=== PATIENT | male | born 1965 | race American Indian/Alaskan Native ===

== ENCOUNTER 2022-10-16 12:09 | Inpatient (IN) | payer MEDICAID ==
[~2022-10-16] VITALS: Ht 167.6 cm; Wt 53.5 kg
[2022-10-16 12:12] VITALS: BP 135/75
--- NOTE | 2022-10-16 12:14 | NUR ---
BIBA to bed 07
--- NOTE | 2022-10-16 12:40 | NUR ---
57 y/o M BIBA from home c/o left-sided chest pain, generalized body pain, dizziness, blurry vision, SOB, nausea, vomiting, abd pain x 3 days. Patient A&Ox4, ambulatory, reports with multiple medical complaints. Pt states left-sided chest pain 8/10, pressure/intermittent, radiating down left shoulder and left hip. Patient also reports pain across low abd; 7/10, cramping/constant, radiating to left rib cage and left shoulder. Patient with associated nausea and vomiting x 2 episodes today. Pt with constipation last BM: 5 days ago with bloody stools; reports new onset hemorrhoids with dark red blood. +Hematuria +Decreased appetite x 3 days; +urinary hesitancy x 1 month. Denies dysuria, fever, chills, headache, trauma, injuries, falls. Patient denies any sick household members. bus driver/monitor in place. SpO2 97% on room air tachypneic @ 25. Bed locked in lowest position, side rails x 1. PMH: HTN, DM, HLD Meds: lipitor, metformin, carvedilol Allergies: insulin
--- NOTE | 2022-10-16 12:45 | NUR ---
ALENA Garcia, blood work walked to lab and handed to CPT Roxana.
[2022-10-16 13:19] LABS: ALBUMIN 2.4 g/dL (3.4-5.0); ANION GAP 13.3 (8-16); CARBON DIOXIDE 28.2 mmol/L (21-32); CREATININE 1.2 mg/dL (0.6-1.3); POTASSIUM 4.5 mmol/L (3.5-5.1); TOTAL BILIRUBIN 1.3 mg/dL (0.0-1.0)
[2022-10-16 13:20] LABS: HEMATOCRIT 38.1 % (36-52); HEMOGLOBIN 12.9 g/dL (12.0-18.0); MEAN CORPUSCULAR HEMOGLOBIN 29 pg (27-31); MEAN CORPUSCULAR HGB CONC 34 g/dL (33-37); MEAN CORPUSCULAR VOLUME 85.2 fL (80-94); PLATELET COUNT (AUTO) 183 K/uL (140-450); RED BLOOD CELL COUNT(AUTO) 4.47 MIL/uL (4.20-6.10); RED CELL DISTRIBUTION WIDTH 13.5 % (11.6-13.7); WHITE BLOOD COUNT (AUTO) 18.2 K/uL (4.8-10.8)
--- NOTE | 2022-10-16 13:22 | NUR ---
Dr. Gonzalez evaluating patient at bedside
[2022-10-16] MEDS ORDERED: ONDANSETRON 4 MG/2 ML VIAL IVP ONE (13:30)
[2022-10-16] MEDS ORDERED: ASPIRIN 81 MG TAB.CHEW PO ONE (13:30)
[2022-10-16] MEDS ORDERED: NACL 0.9% 1,000 ML IV ONE ×2 (13:30→15:35)
[2022-10-16] MEDS ORDERED: KETOROLAC 15 MG/ML VIAL IVP ONE (13:30)
[2022-10-16 13:43] LABS: PROTHROMBIN TIME 10.4 secs (10.8-13.4)
--- NOTE | 2022-10-16 14:05 | NUR ---
Patient resting with both eyes closed in semi-fowlers position with assorter in place. Bed locked in lowest position, side rails x 1.
--- NOTE | 2022-10-16 14:11 | NUR ---
Patient reports + relief to pain; 7/10 at this time. Denies nausea. All pt needs met. monitoring tech in place.
[2022-10-16 14:41] LABS: LYMPHOCYTES % (MANUAL) 11 % (20-46)
[2022-10-16 14:42] LABS: MONOCYTES % (MANUAL) 8 % (5-12); PROMYELOCYTES % 1 % (0-0)
[2022-10-16 15:28] LABS: APPEARANCE,URINE CLEAR (CLEAR); BILIRUBIN,URINE NEGATIVE (NEGATIVE); BLOOD, URINE 2+ (NEGATIVE); COLOR,URINE YELLOW (YELLOW); LEUKOCYTE ESTERASE ,URINE NEGATIVE (NEGATIVE); NITRITE, URINE POSITIVE (NEGATIVE); UGLUCOSE 3+ (NEGATIVE)
[2022-10-16 15:39] LABS: RBC,URINE 11-20 (MOD) /HPF (0-5)
[2022-10-16] MEDS ORDERED: cefTRIAXone 1,000 MG VIAL ONE (16:08)
--- NOTE | 2022-10-16 16:08 | NUR ---
Pt to CT via facundo
--- NOTE | 2022-10-16 16:25 | NUR ---
Patient returned from CT and placed onto site monitor. IVF continued and IVPB initiated.
--- NOTE | 2022-10-16 17:43 | NUR ---
Patient states pain 7/10 at this time, requesting pain meds. Dr. Erickson made aware.
[2022-10-16] MEDS ORDERED: ONDANSETRON 4 MG/2 ML VIAL IVP PRN (17:45)
[2022-10-16] MEDS ORDERED: POTASSIUM CHLORIDE 10 MEQ TABER PO PRN (17:45)
[2022-10-16] MEDS ORDERED: MAGNESIUM OXIDE 400 MG TAB PO PRN (17:45)
--- NOTE | 2022-10-16 17:45 | NUR ---
Sister at bedside requesting to speak with . Dr. Erickson notified.
[2022-10-16] MEDS ORDERED: ATOR20TA PO (18:25)
[2022-10-16] MEDS ORDERED: METF-346 PO (18:25)
[2022-10-16] MEDS ORDERED: AMOX500C25 PO (18:25)
[2022-10-16] MEDS ORDERED: GLIM2TAB PO (18:25)
[2022-10-16] MEDS ORDERED: DEC4 PO (18:25)
[2022-10-16] MEDS ORDERED: PANT40EC PO (18:25)
[2022-10-16] MEDS ORDERED: DOCU-299 PO (18:25)
[2022-10-16] MEDS ORDERED: LISI5TAB18 PO (18:25)
[2022-10-16] MEDS: NACL 0.9% 1,000 ML IV SCH (18:30)
--- NOTE | 2022-10-16 18:32 | NUR ---
PTS SISTER REQUESTING ACCUCHECK D/T PT BEING DIABETIC. DR GUTHRIE PAGED TO NOTIFY HIM OF PTS ALLERGY TO INSULIN. PT AND SISTER UNAWARE OF WHICH INSULIN HE IS ALLERGIC TO. PT REPORTS THIS OCCURRED X1 MONTH AGO AT [facility] AND THEY "HAD TO REVIVE ME WITH GAS MASK". CURRENT BS 312. DR GUTHRIE NOTIFIED. TORB ORDER FOR GLIMEPIRIDE 2MG TID, NO NEED FOR ACCUCHECKS- WILL CHECK GLUCOSE THROUGH MORNING LABS. ORDERS PLACED.
--- NOTE | 2022-10-16 19:18 | NUR ---
Patient resting in semi-fowlers position with maintenance IVF continued at 80mL/hr on infusion pump. clinical research monitor in place. Bed locked in lowest position, side rails x 2. Mikaela (daughter) remains at bedside.
--- NOTE | 2022-10-16 19:30 | NUR ---
Report and transfer of care endorsed to SAM Ortiz.
--- NOTE | 2022-10-16 19:55 | NUR ---
daughter bedside. pt awaiting admission.
--- NOTE | 2022-10-16 21:42 | NUR ---
Patient will be admitted to care of Dr. Pearson. Admited to tele. Will go to [id number]. Belongings list completed. Report to Bushra GOODMAN.
[2022-10-16 22:30] VITALS: BP 126/64
--- NOTE | 2022-10-16 22:30 | NUR ---
RECEIVED PT AAOX4 , FROM ER/ [facility] , NOT IN DISTRESS , WALKS TO BED , IV SITES INTACT AND PATENT . ON TELE MONITOR , RA O2 SAT WNL . FURTHER ADMISSION ASSESSMENT TO BE DONE . C/O WEAKNESS - WILL PUT ON FALL PREVENTION PROTOCOL , URINAL / CALL LIGHT WITHIN REACH . WILL CONT. TO MONITOR .
[2022-10-16] MEDS: ACETAMINOPHEN 325 MG TAB PO PRN (22:34)
--- NOTE | 2022-10-16 22:45 | NUR ---
PER PT'S REQUEST CHECK THE BS . BS 407 - WILL RELAY TO DR. GUTHRIE Addendum: 10/17/22 at 0350 by Bushra Spivey RN AT [address] DR. GUTHRIE AWARE ABOUT BS HE SAID OK VIA TEXT
--- NOTE | 2022-10-17 01:00 | NUR ---
TEMP RE CHECK 100.1 F - WILL ORAL PROVIDE FLUID , TSB REFUSED BY PT .IVF INFUSING WELL . WILL CONT. TO MONITOR , CALL LIGHT WITHIN REACH .
[2022-10-17] MEDS: NACL 0.9% 1,000 ML IV SCH ×2 (02:34→07:49)
--- NOTE | 2022-10-17 03:43 | NUR ---
ER NURSE DID NOT ANSWERING ME , VERIFYING TO LAB IF ER NURSE SUBMITTED SPECIMEN FOR FLU .
[2022-10-17 04:00] VITALS: BP 122/59
[2022-10-17 06:14] LABS: ALBUMIN 1.9 g/dL (3.4-5.0); ANION GAP 12.7 (8-16); CARBON DIOXIDE 24.9 mmol/L (21-32); CREATININE 1.3 mg/dL (0.6-1.3); POTASSIUM 4.6 mmol/L (3.5-5.1); TOTAL BILIRUBIN 0.9 mg/dL (0.0-1.0)
--- NOTE | 2022-10-17 07:39 | NUR ---
endorsed pt for cont. of care , i endorsed to nurse jarod , rn i relayed to dr. merino about latest bs of 444 he have to ff up if there is further order from dr. merino , jarod , rn verbalized understanding . pt is sleeping but easily awakable by touch , call light / urinal within reach .
--- NOTE | 2022-10-17 07:40 | NUR ---
RECEIVED REPORT FROM REGIONAL SALES CONSULTANT. PT AWAKE IN BED, HOB ELEVATED. AOX4, ABLE TO VERBALIZE NEEDS. WITH C/O MUSCLE PAIN ON ALL EXTREMITIES AND CHEST WHEN MOVING, SOB ONLY ON EXERTION. WITH PERIPHERAL IV RAC 20G AND LAC 20G RUNNING NS AT 80CC/HR. PLAN OF CARE DISCUSSED.
[2022-10-17 08:00] VITALS: BP 120/70
--- NOTE | 2022-10-17 08:30 | NUR ---
WITH SOFT LARGE BM, MASOOD CARE DONE
[2022-10-17] MEDS: DOCUSATE SODIUM 100 MG GELCAP PO SCH (08:43)
[2022-10-17] MEDS: GLIMEPIRIDE 2 MG TAB PO SCH ×3 (08:43→17:33)
--- NOTE | 2022-10-17 08:48 | NUR ---
PATIENT HAS BEEN SCREENED AND CATEGORIZED HIGH NUTRITION RISK. PATIENT WILL BE SEEN WITHIN 1-2 DAYS OF ADMISSION. 10/17/22-10/18/22 REVIEWED BY ANA LUISA NAIR RD
--- NOTE | 2022-10-17 09:00 | NUR ---
DUE MEDS GIVEN
--- NOTE | 2022-10-17 11:30 | NUR ---
DC PLANNING ASSESSMENT COMPLETE PLEASE REFER TO ASSESSMENT FOR ADDITIONAL DETAILS PT REPORTS TENTATIVE DC PLAN TO RETURN HOME HOWEVER, PT INQUIRED ON SNF PLACEMENT. SW SPOKE TO PATIENT ON HOW PLACEMENT IS TYPICALLY ARRANGED AND THE COMPLEXITIES OF SNF CARE. PT VERBALIZED UNDERSTANDING AND REPORTED HE WOULD SPEAK TO ATTENDING ON INQUIRING ABOUT SNF PLACEMENT. PT ACCEPTED HOMELESS AND EMERGENCY ASSISTANCE RESOURCES OFFERED BY [facility]. SPOKE TO PT ABOUT WALK UP [facility] IN THE [place], HOWEVER, PT DECLINED AND REPORTED HE WAS NOT INTERESTED. PT REPORTS HE WOULD SPEAK TO HIS MOTHER ABOUT STAYING WITH HER UNTIL HE FELT WELL ENOUGH IF SNF PLACEMENT COULD NOT BE ARRANGED OR IDENTIFIED. Addendum: 10/18/22 at 0822 by Esteban RUSSELL Amended: Links added.
--- NOTE | 2022-10-17 11:41 | NUR ---
DC PLANNIN YRS OLD MALE PATIENT WAS ADMITTED FROM HOME WITH A DX OF UTI, CHEST PAIN. PATIENT HAS A HX OF DM, HTN AND HLD . CXR SHOWED MILD STREAKY LEFT BASAL ATELECTASIS .CT ABD SHOWED HEPATIC CIRRHOSIS AND SEQUELA OF PORTAL HYPERTENSION. CT CHEST NO EVIDENCED OF PE. RAPID COVID TEST NEGATIVE. CONSULTED WITH NEPHRO. DC PLAN TO GO HOME WHEN STABLE CM TO FOLLOW Addendum: 10/22/22 at 1213 by Mai Carson RN DC PLANNING: SEEN BY APPAREL EMBROIDERY DIGITIZER CONTINUED IV ABX VANCOMYCIN DC PLAN TO GO TO SNF FOR IV ABX VANCOMYCIN FOR SIX WEEKS. PATIENT IS HOMELESS .T RAIL TURNER TO FOLLOW UP FOR HOMELESSNESS. CM TO FOLLOW Addendum: 10/23/22 at 1454 by Mai Carson RN DC PLANNING: CM SPOKE WITH PATIENT NOTIFIED HIM THAT UNABLE TO GET SNF AND PATIENT STATED WILL ASK HIS MOTHER IF SHE ALLOWS HIM TO STAY WITH HER UNTIL HE FINISHED THE IV ABX. PATIENT VERBALIZED UNDERSTANDING WILL DO MORE TO TAKE CARE OF HIMSELF, WILL START LOOKING FOR ALCOHOL AND DRUG REHAB PROGRAM. PATIENT STATED HE RECEIVED ALL THE RESOURCES AND WILL WORKING ON IT. DC PLAN TO GO HOME WITH HOME HEALTH FOR IV. CM TO FOLLOW Addendum: 10/24/22 at 1351 by Mai Carson RN DC PLANNING: CM SPOKE WITH DR JACKSON REGARDING DC PLAN PE AWAITING FOR BC RESULT AND ANTIBIOTICS FROM ID. DC PLAN TO GO TO PT'S MOM'S HOUSE WITH HOME HEALTH FOR IV ABX. CM TO FOLLOW Addendum: 10/25/22 at 9329 by Mai Carson RN DC PLANNING: ARRANGED HOME INFUSION VANCOMYCIN 19G Q 18 HRS WITH [facility]. FAXED THE ORDER LABS FOR VANCO TROUGH, CBC AND BMP EVERY WEEK. PER MARIO WILL ARRANGE HOME HEALTH FOR PICC LINE CARE WELL. MEDICATION WILL BE DELIVERED TODAY AND PATIENT CAN BE DISCHARGE NOTIFIED GEO CHARGE NURSE. CM TO FOLLOW
[2022-10-17 12:00] VITALS: BP 128/77
[2022-10-17] MEDS: BLOOD GLUCOSE MONITORING 1 DEV DEV FS SCH ×3 (12:24→21:19)
--- NOTE | 2022-10-17 15:00 | NUR ---
pt resting in bed, no apparent distress
--- NOTE | 2022-10-17 15:57 | NUR ---
10/17/22 RD INITIAL ASSESSMENT COMPLETED PLEASE REFER TO NUTRITION ASSESSMENT UNDER CARE ACTIVITY FOR ESTIMATED NUTRITIONAL NEEDS. 1. RECOMMEND ADDING [id number] TO CARDIAC DIET AND DOWNGRADING TO MECHANICAL SOFT TEXTURE 2. RECOMMEND ADDING GLUCERNA BID -PROVIDING 440KCAL, 20G PROTEIN 3. PROVIDED NUTRITION EDUCATION AND HANDOUTS FOR DM 4. MONITOR GI, PO INTAKE, AND LAB VALUES. 5. RD TO FOLLOW-UP 3-5 DAYS, MODERATE RISK REVIEWED BY ANA LUISA NAIR RD
[2022-10-17 16:00] VITALS: BP 127/78
--- NOTE | 2022-10-17 17:00 | NUR ---
blood sugar check done 377. aware that pt is allergic to insulin
[2022-10-17] MEDS: ACETAMINOPHEN 325 MG TAB PO PRN (18:03)
--- NOTE | 2022-10-17 18:15 | NUR ---
PT WITH EPISODE OF SEVERE CHEST PAIN WITH SOB THAT RADIATED FROM LEFT SIDE OF ABD. PAIN STARTED TO SUBSIDE AFTER A FEW MINUTES. NORCO GIVEN FOR PAIN
[2022-10-17] MEDS: HYDROcodone/APAP 5/325 MG 1 TAB TAB PO PRN (18:33)
--- NOTE | 2022-10-17 18:36 | NUR ---
PAIN TOLERABLE AT THIS TIME PER PT.
[2022-10-17 20:00] VITALS: BP 125/77
--- NOTE | 2022-10-17 22:30 | NUR ---
relayed to pt. has bs 494 and low serum sodium level
[2022-10-18] VITALS: BP 117/65
--- NOTE | 2022-10-18 | NUR ---
at 0000 ivf consumed , ff up same ivf , same rate . will cont. to monitor
[2022-10-18] MEDS: ACETAMINOPHEN 325 MG TAB PO PRN (02:10)
[2022-10-18 04:00] VITALS: BP 115/65
--- NOTE | 2022-10-18 06:51 | NUR ---
requesting for ensure - will endorse .
[2022-10-18 07:07] LABS: ALBUMIN 1.6 g/dL (3.4-5.0); ANION GAP 10.6 (8-16); CARBON DIOXIDE 25.7 mmol/L (21-32); CREATININE 0.9 mg/dL (0.6-1.3); POTASSIUM 4.3 mmol/L (3.5-5.1); TOTAL BILIRUBIN 0.7 mg/dL (0.0-1.0)
[2022-10-18] MEDS: NACL 0.9% 1,000 ML IV SCH ×2 (07:15→19:45)
[2022-10-18] MEDS: BLOOD GLUCOSE MONITORING 1 DEV DEV FS SCH ×4 (07:19→20:32)
[2022-10-18 08:00] VITALS: BP 122/80
[2022-10-18] MEDS: HYDROcodone/APAP 5/325 MG 1 TAB TAB PO PRN ×2 (08:53→17:47)
[2022-10-18] MEDS: GLIMEPIRIDE 2 MG TAB PO SCH ×3 (08:53→17:48)
[2022-10-18] MEDS: DOCUSATE SODIUM 100 MG GELCAP PO SCH (08:53)
[2022-10-18 12:00] VITALS: BP 126/78
--- NOTE | 2022-10-18 14:20 | NUR ---
PT WAS ROUND ON 3L NC. ASSESSED PT AND HIS VITALS WERE 85 HR SPO2 98%. EXPLAINED TO PT HE DIDNT NEED O2 AND ASKED IF HE WAS SOB. HE STATED SOMETIMES WHEN HE FEELS ANXIOUS AND WHEN HE GETS UP AND MOVES AROUND. LET PT AND FAMILY KNOW I TALKED TO RN AND SHE WOUND ORDER A PRN BREATHING TX INCAASE PT WERE TO NEED IT. WILL CONTINUE TO MONITOR. NO DISTRESS NOTED. ROOM AIR SATS ARE 95%.
[2022-10-18] MEDS ORDERED: ALBUTEROL 0.083% 2.5 MG/3 ML NEBU INH PRN (14:35)
[2022-10-18 16:00] VITALS: BP 112/78
[2022-10-18 20:00] VITALS: BP 120/80
[2022-10-18] MEDS: MORPHINE SULFATE 4 MG/ML SYR IVP PRN (20:41)
--- NOTE | 2022-10-18 20:58 | NUR ---
RECEIVED REPORT FROM DAY SHIFT RN FOR CONTINUITY OF CARE. PT IS AWAKE AND ALERT. FAMILY BY BEDSIDE. PT NOT IN ANY DISTRESS. ON RA SATING 98%. POC DISCUSSED. WILL CONTINUE TO MONITOR THE PT. Addendum: 10/18/22 at 210 by Martin Hernández RN REPORT RECEIVED 1914
[2022-10-19] VITALS: BP 109/72
--- NOTE | 2022-10-19 01:00 | NUR ---
CHECKED ON PT. PT IS SLEEPING IN BED NOT IN ANY DISTRESS. BREATHING EVEN AND UNLABORED. SAFETY MEASURES TAKEN. WILL CONTINUE TO MONITOR THE PT.
[2022-10-19] MEDS: NACL 0.9% 1,000 ML IV SCH (01:31)
[2022-10-19] MEDS: MORPHINE SULFATE 4 MG/ML SYR IVP PRN ×2 (03:41→19:53)
[2022-10-19 04:00] VITALS: BP 100/67
[2022-10-19 06:25] LABS: ALBUMIN 1.5 g/dL (3.4-5.0); ANION GAP 14.9 (8-16); CARBON DIOXIDE 22.3 mmol/L (21-32); CREATININE 1.1 mg/dL (0.6-1.3); POTASSIUM 5.2 mmol/L (3.5-5.1); TOTAL BILIRUBIN 0.7 mg/dL (0.0-1.0)
[2022-10-19] MEDS: BLOOD GLUCOSE MONITORING 1 DEV DEV FS SCH ×4 (07:02→21:34)
--- NOTE | 2022-10-19 07:17 | NUR ---
ENDORSED PT TO DAY SHIFT RN FOR CONTINUITY OF CARE. PT IS STABLE.
[2022-10-19 08:00] VITALS: BP 110/73
[2022-10-19] MEDS: DOCUSATE SODIUM 100 MG GELCAP PO SCH (09:00)
[2022-10-19] MEDS: GLIMEPIRIDE 2 MG TAB PO SCH ×3 (10:13→17:00)
[2022-10-19] MEDS ORDERED: DEXTROSE 50% 50 ML SYR IVP PRN (11:20)
[2022-10-19 12:00] VITALS: BP 113/73
[2022-10-19 16:00] VITALS: BP 101/66
[2022-10-19] MEDS ORDERED: INSULIN LISPRO 100 UNITS/ML VIAL SUBQ SCH (17:48)
[2022-10-19] MEDS ORDERED: INSULIN LISPRO 100 UNITS/ML VIAL SUBQ ONE (17:50)
--- NOTE | 2022-10-19 19:17 | NUR ---
P.T. NOTES TENISHA P.TLynnette AMBROCIO AT THIS TIME, Pt VERY ANXIOUS, EASILY AGITATED, EMOTIONAL, USES FOUL WORDS, WAITING FOR "2 MALE STAFF" TO CLEAN HIM UP, NURSE NOTIFIED. Addendum: 10/19/22 at 1919 by Jackie Apple PT [phone]
--- NOTE | 2022-10-19 19:30 | NUR ---
RECEIVED REPORT FROM DAY SHIFT RN FOR CONTINUITY OF CARE. PT IS AWAKE AND ALERT. PT NOT IN ANY DISTRESS. ON RA SATING 98%. POC DISCUSSED. WILL CONTINUE TO MONITOR THE PT.
[2022-10-19 20:00] VITALS: BP 110/71
[2022-10-19] MEDS ORDERED: INSULIN LANTUS 100 UNITS/ML 10 ML VIAL SUBQ SCH (20:30)
[2022-10-19] MEDS: INSULIN LISPRO SLIDING SCALE 100 UNITS/ML VIAL SUBQ PRN (21:29)
--- NOTE | 2022-10-19 22:19 | NUR ---
0800 RECIEVED PT FROM HENRY GOODMAN. PT RESTING IN BED EYES CLOSED. NO GAURDING OR GRIMACING. NO ACUTE DISTRESS NOTED AT THIS TIME. [id number].
--- NOTE | 2022-10-19 22:20 | NUR ---
194: REPORT OFF TO HENRY GOODMAN. PT RESTING IN BED FAMILY AT BEDSIDE. NO ACUTE DISTRESS NOTED AT THIS TIME. [id number].
[2022-10-20] VITALS: BP 105/65
[2022-10-20] MEDS: MORPHINE SULFATE 4 MG/ML SYR IVP PRN ×3 (01:12→19:59)
--- NOTE | 2022-10-20 01:12 | NUR ---
PT WAS COMPLAINING OF BACK AND LEG PAIN 8/10. MORPHINE WAS GIVEN. WILL CONTINUE TO MONITOR THE PT.
[2022-10-20 06:35] LABS: ALBUMIN 1.5 g/dL (3.4-5.0); ANION GAP 13.3 (8-16); CARBON DIOXIDE 22.7 mmol/L (21-32); CREATININE 1.2 mg/dL (0.6-1.3); TOTAL BILIRUBIN 0.4 mg/dL (0.0-1.0)
[2022-10-20] MEDS: INSULIN LISPRO SLIDING SCALE 100 UNITS/ML VIAL SUBQ PRN (06:53)
[2022-10-20] MEDS: BLOOD GLUCOSE MONITORING 1 DEV DEV FS SCH ×4 (06:54→22:00)
--- NOTE | 2022-10-20 07:10 | NUR ---
ENDORSED PT TO DAY SHIFT RN FOR CONTINUITY OF CARE. PT IS STABLE.
[2022-10-20 08:00] VITALS: BP 97/60
[2022-10-20] MEDS: DOCUSATE SODIUM 100 MG GELCAP PO SCH (09:58)
[2022-10-20] MEDS: GLIMEPIRIDE 2 MG TAB PO SCH ×3 (09:58→19:10)
[2022-10-20] MEDS: HYDROcodone/APAP 5/325 MG 1 TAB TAB PO PRN (10:16)
--- NOTE | 2022-10-20 11:22 | NUR ---
P.T. NOTES P.T. EVAL COMPLETED; REFER TO EVAL FOR DETAILS.
[2022-10-20] MEDS ORDERED: VANCOMYCIN PER PHARMACY MC PRN (11:55)
[2022-10-20] MEDS ORDERED: INSULIN LISPRO 100 UNITS/ML VIAL SUBQ SCH (12:45)
[2022-10-20] MEDS: VANCOMYCIN 1,000 MG in NACL 0.9% 250 ML IV SCH (15:29)
[2022-10-20] MEDS: GABAPENTIN 300 MG CAP PO SCH ×2 (15:34→19:10)
--- NOTE | 2022-10-20 19:30 | NUR ---
RECEIVED REPORT FROM DAY SHIFT RN FOR CONTINUITY OF CARE. PT IS AAOX4 ON RA. SATING 93%. PT NOT IN AN DISTRESS. POC DISCUSSED. WILL CONTINUE TO MONITOR THE PT.
[2022-10-20 20:00] VITALS: BP 110/64
[2022-10-21] VITALS: BP 101/81
--- NOTE | 2022-10-21 | NUR ---
VITAL SIGNS TAKEN AND STABLE. PT HAD ASKED FOR PAIN MEDICATION AND THEN ENDED UP REFUSING. NO OTHER COMPLAINS. WILL CONTINUE TO MONITOR THE PT.
[2022-10-21] MEDS: MORPHINE SULFATE 4 MG/ML SYR IVP PRN ×3 (00:13→11:58)
--- NOTE | 2022-10-21 02:33 | NUR ---
PT WAS COMPLAINING OF A LOT OF FOOT PAIN AND BACK PAIN. MORPHINE WAS GIVEN. NO OTHER COMPLAINS.
[2022-10-21] MEDS: BLOOD GLUCOSE MONITORING 1 DEV DEV FS SCH ×4 (06:37→21:00)
[2022-10-21 06:42] LABS: ALBUMIN 1.6 g/dL (3.4-5.0); ANION GAP 9.1 (8-16); CARBON DIOXIDE 26.9 mmol/L (21-32); CREATININE 0.9 mg/dL (0.6-1.3); TOTAL BILIRUBIN 0.5 mg/dL (0.0-1.0)
--- NOTE | 2022-10-21 07:19 | NUR ---
ENDORSED PT TO DAY SHIFT RN FOR CONTINUITY OF CARE. PT IS STABLE.
[2022-10-21 07:55] VITALS: BP 106/68
[2022-10-21] MEDS: GLIMEPIRIDE 2 MG TAB PO SCH ×3 (09:57→18:57)
[2022-10-21] MEDS: DOCUSATE SODIUM 100 MG GELCAP PO SCH (09:57)
[2022-10-21] MEDS: GABAPENTIN 300 MG CAP PO SCH ×3 (09:57→18:57)
[2022-10-21] MEDS: ACETAMINOPHEN 325 MG TAB PO PRN (10:02)
[2022-10-21] MEDS: INSULIN LISPRO SLIDING SCALE 100 UNITS/ML VIAL SUBQ PRN ×3 (11:50→22:20)
[2022-10-21] MEDS: VANCOMYCIN 1,000 MG in NACL 0.9% 250 ML IV SCH (14:24)
--- NOTE | 2022-10-21 15:28 | NUR ---
10/21/22 RD FOLLOW UP COMPLETED.PLEASE REFER TO NUTRITION ASSESSMENT UNDER CARE ACTIVITY FOR ESTIMATED NUTRITIONAL NEEDS. 1. CONTINUE WITH [id number]/CARDIAC DIET, MECHANICAL SOFT TEXTURES PT TOLERATES. 2. CONTINUE WITH GLUCERNA BID -PROVIDING 440KCAL, 10G PROTEIN 3. MONITOR PO INTAKE 4. RD TO FOLLOW-UP 3-5 DAYS, MODERATE RISK GAYATHRI ZUNIGA, RD
[2022-10-21 16:00] VITALS: BP 110/66
[2022-10-21] MEDS ORDERED: INSULIN LANTUS 100 UNITS/ML 10 ML VIAL SUBQ SCH (16:00)
--- NOTE | 2022-10-21 19:22 | NUR ---
PT IS AWAKE AND ALERT, ABLE TO VERBALIZE NEEDS. PT HAS PICC LINE ON RIGHT ARM - 2 LUMENS, INTACT AND PATENT. HE IS ON SALINE LOCK. AND IS ON CARDIAC DIET. CONSUME 40% OF DINNER.
[2022-10-21 20:00] VITALS: BP 107/64
--- NOTE | 2022-10-21 22:20 | NUR ---
BLOOD SUGAR CHECKED = 308 = 8 UNITS HUMALOG INSULIN
[2022-10-21] MEDS: HYDROcodone/APAP 5/325 MG 1 TAB TAB PO PRN (22:53)
--- NOTE | 2022-10-21 22:53 | NUR ---
PT COMPLAINTS OF PAIN ON HIP, BACK AND FEET 12/15, PAIN MEDICATION NORCO ADMINISTERED ORDER. PT IS AWAKE AND ALERT, VERBALLY RESPONSIVE.
--- NOTE | 2022-10-21 23:53 | NUR ---
PT IS SLEEPING SOUNDLY. NO FACIAL GRIMACING. PT IS ON STABLE CONDITION.
--- NOTE | 2022-10-22 00:30 | NUR ---
PT IS SLEEPING SOUNDLY.
--- NOTE | 2022-10-22 02:00 | NUR ---
PT IS ASLEEP WITH NO SOB OR DISTRESS.
[2022-10-22 04:00] VITALS: BP 114/75
[2022-10-22] MEDS: BLOOD GLUCOSE MONITORING 1 DEV DEV FS SCH ×4 (06:56→22:00)
[2022-10-22] MEDS: INSULIN LISPRO SLIDING SCALE 100 UNITS/ML VIAL SUBQ PRN ×4 (06:57→22:19)
--- NOTE | 2022-10-22 06:57 | NUR ---
BLOOD SUGAR CHECKED = 232 = 4 UNITS. PT IS ON STABLE CONDITION.
--- NOTE | 2022-10-22 07:30 | NUR ---
RECEIVED REPORT FROM MARJ NURSE CHAVA FOR CONTINUITY OF CARE. INITIAL ASSESSMENT DONE. IV ON SALINE LOCK. PICC LINE TO NISA INTACT. NOT IN ANY DISTRESS NOTED. CALL LIGHT KEPT WITHIN REACH. WILL CONTINUE TO MONITOR.
[2022-10-22 08:00] VITALS: BP 114/75
[2022-10-22] MEDS ORDERED: INSULIN LANTUS 100 UNITS/ML 10 ML VIAL SUBQ SCH (09:00)
[2022-10-22] MEDS: HYDROcodone/APAP 5/325 MG 1 TAB TAB PO PRN ×2 (09:28→15:20)
--- NOTE | 2022-10-22 09:28 | NUR ---
PRN NORCO WAS GIVEN FOR PAIN MANAGEMENT. TOLERATED WELL.
[2022-10-22] MEDS: DOCUSATE SODIUM 100 MG GELCAP PO SCH (09:29)
[2022-10-22] MEDS: GABAPENTIN 300 MG CAP PO SCH ×3 (09:29→17:36)
[2022-10-22] MEDS: GLIMEPIRIDE 2 MG TAB PO SCH ×3 (09:29→17:35)
--- NOTE | 2022-10-22 09:29 | NUR ---
SCHEDULED PO MEDICATIONS GIVEN. TOLERATED WELL.
--- NOTE | 2022-10-22 10:10 | NUR ---
PT CURRENTLY ON HEPARIN. NO RECENT LABS. DR. JACKSON NOTIFIED WITH NEW ORDERS: CBC, BMP TODAY. ORDER NOTED AND CARRIED OUT.
[2022-10-22 10:46] LABS: BASOPHILS # (AUTO) 0.1 K/uL (0.00-0.22); EOSINOPHILS # (AUTO) 0.1 K/uL (0-0.4); LYMPHOCYTES # (AUTO) 0.9 K/uL (2.0-11.5); MONOCYTES # (AUTO) 0.6 K/uL (0.8-1.0)
[2022-10-22 10:48] LABS: EOSINOPHILS % (AUTO) 0.9 % (0.0-4.0); HEMOGLOBIN 11.2 g/dL (12.0-18.0); MONOCYTES % (AUTO) 6.3 % (1.7-9.3)
[2022-10-22 10:52] LABS: BASOPHILS % (AUTO) 0.9 % (0.0-2.0); LYMPHOCYTES % (AUTO) 9.6 % (20.5-51.1); MEAN CORPUSCULAR HEMOGLOBIN 29 pg (27-31); MEAN CORPUSCULAR HGB CONC 34 g/dL (33-37); MEAN CORPUSCULAR VOLUME 85.8 fL (80-94); NEUTROPHILS # (AUTO) 7.8 K/uL (1.8-7.7); NEUTROPHILS % (AUTO) 82.3 % (42.2-75.2); PLATELET COUNT (AUTO) 176 K/uL (140-450); RED BLOOD CELL COUNT(AUTO) 3.85 MIL/uL (4.20-6.10); RED CELL DISTRIBUTION WIDTH 14.1 % (11.6-13.7); WHITE BLOOD COUNT (AUTO) 9.5 K/uL (4.8-10.8)
--- NOTE | 2022-10-22 11:00 | NUR ---
SCHEDULED HEPARIN SQ WAS GIVEN. TOLERATED WELL.
[2022-10-22 11:07] LABS: ANION GAP 11.5 (8-16); CARBON DIOXIDE 25.2 mmol/L (21-32); CREATININE 0.9 mg/dL (0.6-1.3); POTASSIUM 4.7 mmol/L (3.5-5.1)
--- NOTE | 2022-10-22 12:11 | NUR ---
BS CHECKED 352. INSULIN WAS GIVEN PER SLIDING SCALE.
[2022-10-22 12:16] LABS: ANION GAP 8.9 (8-16); CARBON DIOXIDE 26.9 mmol/L (21-32); CREATININE 0.9 mg/dL (0.6-1.3); POTASSIUM 4.8 mmol/L (3.5-5.1)
--- NOTE | 2022-10-22 12:34 | NUR ---
RECEIVED CALLED FROM PHARMACY SPOKE TO THELMA. RECOMMENDED CONT. VANCOMYCIN SAME DOSE Q 12H.
--- NOTE | 2022-10-22 13:30 | NUR ---
ADMINISTERED SCHEDULED PO MEDICATIONS. TOLERATING WELL.
[2022-10-22] MEDS: VANCOMYCIN 1,000 MG in NACL 0.9% 250 ML IV SCH (15:16)
--- NOTE | 2022-10-22 15:16 | NUR ---
IV ABT VANCOMYCIN WAS GIVEN BY COLTON GOODMAN. TOLERATING WELL.
--- NOTE | 2022-10-22 15:20 | NUR ---
PRN NORCO GIVEN FOR PAIN MANAGEMENT. TOLERATED WELL.
--- NOTE | 2022-10-22 16:50 | NUR ---
BS CHECKED 238. INSULIN GIVEN PER SLIDING SCALE.
--- NOTE | 2022-10-22 19:25 | NUR ---
REPORT GIVEN TO CHAVA FOR CONTINUITY OF CARE. REMAINS STABLE.
[2022-10-22 20:00] VITALS: BP 114/70
--- NOTE | 2022-10-22 21:00 | NUR ---
BLOOD SUGAR CHECKED = 243 = 4 UNITS HUMALOG INSULIN ADMINISTERED.
[2022-10-22] MEDS: INSULIN LANTUS 100 UNITS/ML 10 ML VIAL SUBQ SCH (22:00)
[2022-10-23] MEDS: MORPHINE SULFATE 4 MG/ML SYR IVP PRN ×3 (00:03→21:12)
--- NOTE | 2022-10-23 00:03 | NUR ---
PT COMPLAINTS OF PAIN 8/10 OF HIPS, LEGS AND BACK. PAIN MEDICATION MORPHINE ADMINISTERED ORDER.
[2022-10-23] MEDS: VANCOMYCIN 1,000 MG in NACL 0.9% 250 ML IV SCH ×2 (00:12→13:48)
--- NOTE | 2022-10-23 01:03 | NUR ---
PT IS ASLEEP, NO SOB OR DISTRESS. NO FACIAL GRIMACING.
[2022-10-23 04:00] VITALS: BP 101/65
[2022-10-23 05:44] LABS: BASOPHILS % (AUTO) 0.4 % (0.0-2.0); EOSINOPHILS # (AUTO) 0.1 K/uL (0-0.4); MEAN CORPUSCULAR HGB CONC 34 g/dL (33-37); MONOCYTES # (AUTO) 0.7 K/uL (0.8-1.0)
[2022-10-23 05:46] LABS: EOSINOPHILS % (AUTO) 0.9 % (0.0-4.0); HEMATOCRIT 28.8 % (36-52); HEMOGLOBIN 9.8 g/dL (12.0-18.0); LYMPHOCYTES # (AUTO) 1.5 K/uL (2.0-11.5); LYMPHOCYTES % (AUTO) 13.2 % (20.5-51.1); MEAN CORPUSCULAR HEMOGLOBIN 29 pg (27-31); MEAN CORPUSCULAR VOLUME 85.4 fL (80-94); MONOCYTES % (AUTO) 6.4 % (1.7-9.3); NEUTROPHILS # (AUTO) 9.1 K/uL (1.8-7.7); NEUTROPHILS % (AUTO) 79.1 % (42.2-75.2); PLATELET COUNT (AUTO) 164 K/uL (140-450); RED BLOOD CELL COUNT(AUTO) 3.37 MIL/uL (4.20-6.10); WHITE BLOOD COUNT (AUTO) 11.5 K/uL (4.8-10.8)
[2022-10-23 05:52] LABS: ANION GAP 7.3 (8-16); CARBON DIOXIDE 26.3 mmol/L (21-32); CREATININE 0.8 mg/dL (0.6-1.3); POTASSIUM 4.6 mmol/L (3.5-5.1)
[2022-10-23] MEDS: BLOOD GLUCOSE MONITORING 1 DEV DEV FS SCH ×4 (06:43→20:48)
--- NOTE | 2022-10-23 06:43 | NUR ---
BLOOD SUGAR CHECKED = 107, NO INSULIN COVERAGE.
--- NOTE | 2022-10-23 07:05 | NUR ---
RECEIVED REPORT FROM NIGHT NURSE CHAVA FOR CONTINUITY OF CARE. INITIAL ASSESSMENT DONE. PICC LINE TO NISA INTACT. NOT IN ANY DISTRESS NOTED. CALL LIGHT KEPT WITHIN REACH. WILL CONTINUE TO MONITOR.
[2022-10-23 08:00] VITALS: BP 103/68
[2022-10-23] MEDS: DOCUSATE SODIUM 100 MG GELCAP PO SCH (09:40)
[2022-10-23] MEDS: GLIMEPIRIDE 2 MG TAB PO SCH ×3 (09:40→17:00)
[2022-10-23] MEDS: GABAPENTIN 300 MG CAP PO SCH ×3 (09:40→17:00)
--- NOTE | 2022-10-23 10:46 | NUR ---
PRN MORPHINE WAS GIVEN. TOLERATED WELL.
[2022-10-23] MEDS: INSULIN LISPRO SLIDING SCALE 100 UNITS/ML VIAL SUBQ PRN ×3 (11:25→21:19)
--- NOTE | 2022-10-23 11:25 | NUR ---
BS CHECKED 201. INSULIN GIVEN PER SLIDING SCALE.
--- NOTE | 2022-10-23 13:17 | NUR ---
SCHEDULED MEDICATIONS GIVEN. TOLERATING WELL.
--- NOTE | 2022-10-23 13:48 | NUR ---
IV VANCOMYCIN GIVEN BY ANU GOODMAN. TOLERATED WELL.
--- NOTE | 2022-10-23 16:59 | NUR ---
BS CHECKED 218. INSULIN GIVEN PER SLIDING SCALE.
--- NOTE | 2022-10-23 19:24 | NUR ---
BEDSIDE REPORT GIVEN TO LESLI GOODMAN FOR CONTINUITY OF CARE. REMAINS STABLE.
--- NOTE | 2022-10-23 19:30 | NUR ---
RECEIVED REPORT FROM DAY SHIFT NURSE JOSÉ ANTONIO FOR CONTINUITY OF CARE. PATIENT IS A&O X4. PATIENT IS ON RA; BREATHING IS NORMAL WITH SYMMETRICAL RISE AND FALL OF CHEST. IV IS A PICC LINE, NO FLUIDS RUNNING AT THIS TIME (SALINE LOCKED). PATIENT IS SITTING UP IN SEMI-FOWLERS POSITION VISITING WITH FAMILY. BED IS IN LOWEST POSITION, WHEELS LOCKED, CALL LIGHT IN PLACE. WILL CONTINUE TO OBSERVE PATIENT.
[2022-10-23 20:00] VITALS: BP 136/85
--- NOTE | 2022-10-23 20:18 | NUR ---
NOTIFIED DR. MASON FOR RENEWAL OF MORPHINE AND NORCO ORDER. AWAITING FOR RESPONSE. LESLI GOODMAN MADE AWARE.
[2022-10-23] MEDS: INSULIN LANTUS 100 UNITS/ML 10 ML VIAL SUBQ SCH (21:13)
--- NOTE | 2022-10-24 00:48 | NUR ---
1950 PM NURSING NARRATIVE (OPENING) HAND-OFF REPORT RECEIVED FROM JUAN MANUEL GOODMAN A.M NURSE FOR CONTINUITY OF CARE WITH BEDSIDE ROUNDS FOLLOWING. REPORTED: PT STABLE CONDITION, WITH ENCOURAGEMENT TO USE URINAL AND BSC INSTEAD OF ATTEMPTING BRP DUE TO UNSTEADINESS WITH ASSIST. PT COMPLIANT IN ASKING FOR ASSISTANCE FOR BRP. NS@135ML/HR VIA NISA PICC. CONTACT ISO. MRSA URINE/BLOOD. PT RECEIVED REPORTED, RESTING IN BED. DENIES CHEST PAIN. NO RESP DISTRESS. PLAN OF CARE FOR SHIFT: MEDS ORDERS, COMFORT MEASURES.
[2022-10-24] MEDS: VANCOMYCIN 1,000 MG in NACL 0.9% 250 ML IV SCH ×2 (01:22→12:47)
--- NOTE | 2022-10-24 01:30 | NUR ---
PATIENT CALLED AND REQUESTED PAIN MEDICATION. ASSESSED VITALS AND CHART; MORPHINE WAS APPROPRIATE TO ADMINISTER. MEDICATION ADMINISTERED SUCCESSFULLY WITHOUT ANY ISSUES. PATIENT IS CURRENTLY SLEEPING, LYING SUPINE. 0100 MEDICATION ADMINISTERED WITHOUT ANY ISSUES WITH PICCLINE. PATIENT'S BREATHING IS NORMAL WITH SYMMETRICAL RISE AND FALL OF CHEST. WILL CONTINUE TO OBSERVE PATIENT.
[2022-10-24 04:00] VITALS: BP 119/74
[2022-10-24] MEDS: MORPHINE SULFATE 4 MG/ML SYR IVP PRN ×4 (05:28→23:46)
--- NOTE | 2022-10-24 05:40 | NUR ---
PATIENT AMBULATED TO THE BATHROOM WITH THE ASSISTANCE OF OMER AU AND MYSELF. PATIENT HAD A VERY WEAK GAIT, NEEDING ASSISTANCE ON BOTH SIDES OF HIS BODY TO WALK. AFTER GETTING BACK IN BED, PATIENT REQUESTED A PAIN MEDICATION STATING THAT THE WALK WAS PAINFUL FOR HIM. CHECKED PATIENT'S CHART AND VITALS; MORPHINE WAS APPROPRIATE TO ADMINISTER. ADMINISTERED MORPHINE, PATIENT TOLERATED WELL. WILL CONTINUE TO OBSERVE PATIENT.
[2022-10-24] MEDS ORDERED: HYDROcodone/APAP 5/325 MG 1 TAB TAB PO PRN (05:50)
--- NOTE | 2022-10-24 05:53 | NUR ---
DR. MASON WAS MESSAGED ABOUT MORPHINE AND NORCO EXPIRING AT [address] MASON AUTHORIZED RENEW OF BOTH MORPHINE AND NORCO. CALLED PHARMACY AT 0520 TO LET THEM KNOW MEDICATION RENEWAL WAS OBTAINED FROM MD. PHARMACIST DYLAN SAID TO PUT IT IN A NEW ORDER AND THE OTHER ONES WILL D/C AT SCHEDULED TIME. PUT NEW ORDERS IN.
[2022-10-24] MEDS: INSULIN LISPRO SLIDING SCALE 100 UNITS/ML VIAL SUBQ PRN ×4 (07:02→23:43)
[2022-10-24] MEDS: BLOOD GLUCOSE MONITORING 1 DEV DEV FS SCH ×4 (07:02→21:00)
--- NOTE | 2022-10-24 07:48 | NUR ---
ENDORSED TO DAY SHIFT NURSE LYN FOR CONTINUITY OF CARE. PATIENT IS STABLE.
[2022-10-24 08:00] VITALS: BP 118/70
[2022-10-24] MEDS: DOCUSATE SODIUM 100 MG GELCAP PO SCH (10:28)
[2022-10-24] MEDS: GLIMEPIRIDE 2 MG TAB PO SCH ×3 (10:29→17:19)
[2022-10-24] MEDS: GABAPENTIN 300 MG CAP PO SCH ×3 (10:29→17:19)
[2022-10-24 13:04] LABS: BASOPHILS % (AUTO) 0.5 % (0.0-2.0); EOSINOPHILS # (AUTO) 0.1 K/uL (0-0.4); EOSINOPHILS % (AUTO) 1.7 % (0.0-4.0); HEMATOCRIT 32.1 % (36-52); HEMOGLOBIN 10.7 g/dL (12.0-18.0); LYMPHOCYTES # (AUTO) 0.9 K/uL (2.0-11.5); LYMPHOCYTES % (AUTO) 12.9 % (20.5-51.1); MEAN CORPUSCULAR HEMOGLOBIN 29 pg (27-31); MEAN CORPUSCULAR HGB CONC 33 g/dL (33-37); MEAN CORPUSCULAR VOLUME 87.4 fL (80-94); MONOCYTES # (AUTO) 0.5 K/uL (0.8-1.0); MONOCYTES % (AUTO) 6.3 % (1.7-9.3); NEUTROPHILS # (AUTO) 5.6 K/uL (1.8-7.7); NEUTROPHILS % (AUTO) 78.6 % (42.2-75.2); PLATELET COUNT (AUTO) 145 K/uL (140-450); RED BLOOD CELL COUNT(AUTO) 3.67 MIL/uL (4.20-6.10); RED CELL DISTRIBUTION WIDTH 14.2 % (11.6-13.7); WHITE BLOOD COUNT (AUTO) 7.1 K/uL (4.8-10.8)
[2022-10-24 13:21] LABS: ANION GAP 8.1 (8-16); CREATININE 0.9 mg/dL (0.6-1.3); POTASSIUM 5.1 mmol/L (3.5-5.1)
--- NOTE | 2022-10-24 19:25 | NUR ---
ENDORSE PATIENT IN STABLE CONDITION TO PM SHIFT NURSE WHILE NS INFUSING @135ML/HR VIA NISA PICC SITE.
[2022-10-24 20:00] VITALS: BP 119/75
[2022-10-24] MEDS: INSULIN LANTUS 100 UNITS/ML 10 ML VIAL SUBQ SCH (21:00)
--- NOTE | 2022-10-25 00:59 | NUR ---
PT VERBALIZING EXPERIENCES STATED APPRECIATION FOR ACTIVELY LISTENING TO HIS EXPERIENCES AND APPEARING INTERESTED GENUINELY. PT TEARING A BIT. STATED RELIEF "I HAVE NOT TALKED TO ANYONE IN A LONG TIME ABOUT MY EXPERIENCES"/ CONTINUE TO PROVIDE ATMOSPHERE FOR PT TO FEEL HEARD.
--- NOTE | 2022-10-25 01:14 | NUR ---
2346 MORPHINE 4MG IVP FOR PAIN 9/10 LEFT HIP/BACK AND BOTH LEGS. SEE EMAR.
--- NOTE | 2022-10-25 01:16 | NUR ---
2100 HS MEDS REFUSED TILL "LATER". SLEEPING.
[2022-10-25 04:00] VITALS: BP 124/79
[2022-10-25] MEDS: BLOOD GLUCOSE MONITORING 1 DEV DEV FS SCH ×2 (04:57→12:30)
[2022-10-25] MEDS: INSULIN LISPRO SLIDING SCALE 100 UNITS/ML VIAL SUBQ PRN ×2 (04:58→13:47)
[2022-10-25] MEDS: MORPHINE SULFATE 4 MG/ML SYR IVP PRN ×3 (05:10→14:51)
[2022-10-25 05:41] LABS: BASOPHILS % (AUTO) 0.4 % (0.0-2.0); EOSINOPHILS # (AUTO) 0.1 K/uL (0-0.4); HEMATOCRIT 30.8 % (36-52); HEMOGLOBIN 10.2 g/dL (12.0-18.0); LYMPHOCYTES # (AUTO) 1.1 K/uL (2.0-11.5); LYMPHOCYTES % (AUTO) 12.9 % (20.5-51.1); MEAN CORPUSCULAR HEMOGLOBIN 29 pg (27-31); MEAN CORPUSCULAR HGB CONC 33 g/dL (33-37); MEAN CORPUSCULAR VOLUME 86.8 fL (80-94); MONOCYTES # (AUTO) 0.6 K/uL (0.8-1.0); MONOCYTES % (AUTO) 6.9 % (1.7-9.3); NEUTROPHILS # (AUTO) 6.5 K/uL (1.8-7.7); NEUTROPHILS % (AUTO) 78.8 % (42.2-75.2); PLATELET COUNT (AUTO) 155 K/uL (140-450); RED BLOOD CELL COUNT(AUTO) 3.55 MIL/uL (4.20-6.10); RED CELL DISTRIBUTION WIDTH 14.6 % (11.6-13.7); WHITE BLOOD COUNT (AUTO) 8.3 K/uL (4.8-10.8)
[2022-10-25 05:46] LABS: ANION GAP 8.7 (8-16); CARBON DIOXIDE 25.1 mmol/L (21-32); CREATININE 0.8 mg/dL (0.6-1.3); POTASSIUM 4.8 mmol/L (3.5-5.1)
[2022-10-25] MEDS ORDERED: VANCOMYCIN 1,000 MG in NACL 0.9% 250 ML IV SCH (06:00)
--- NOTE | 2022-10-25 07:52 | NUR ---
Received awake in no acute distress, all safety measures in place. aox4, denies discomfort
[2022-10-25 08:00] VITALS: BP 103/68
--- NOTE | 2022-10-25 08:00 | NUR ---
Received in no acute distress BP Vss, all safety measures in place Abdomen appears distended, bowel sounds present, voids using the urinal stated he wants to go home today
--- NOTE | 2022-10-25 08:19 | NUR ---
0510 PAIN 9/10 BACK, LEFT HIP AND LEGS. MEDICATED WITH MORPHINE 4MG IVP.VSS.
--- NOTE | 2022-10-25 08:22 | NUR ---
0730 PM NURSING NARRATIVE (CLOSING) HAND-OFF REPORT TO ON-COMING RN FOR CONTINUITY OF CARE FOLLOWED BY BEDSIDE ROUNDS. VSS. UNEVENTFUL NOC. ENDORSED: ENCOURAGED TO USE URINAL/BSC OPPOSED TO FREQUENT TRIPS TO BATHROOM BECAUSE OF UNSTEADY GAIT AND TO DECREASE CHANCES OF INJURY. RELINQUISHED CARE OF PT.
[2022-10-25] MEDS: DOCUSATE SODIUM 100 MG GELCAP PO SCH (09:00)
[2022-10-25] MEDS: GABAPENTIN 300 MG CAP PO SCH ×2 (09:00→13:45)
[2022-10-25] MEDS: GLIMEPIRIDE 2 MG TAB PO SCH ×3 (09:00→15:01)
--- NOTE | 2022-10-25 11:05 | NUR ---
c/o abdominal pain 9/10 in pain scale of 10, sharp in character Morphine sulfate 4mg given ivp. will reasses
--- NOTE | 2022-10-25 11:35 | NUR ---
Patient stated his pain level on scale of 10 is zero, appears more comfortable
--- NOTE | 2022-10-25 13:26 | NUR ---
RECEIVED ORDER FOR HOME HEALTH FOR IV ABX. FAXED ALL PAPER WORK TO [facility] [phone] AND [facility] [phone] WHO SAID THEY WOULD BE ABLE TO ACCEPT PATIENT. THEY WILL BE CONTACTING PATIENT AND PATIENTS FAMILY TO START HOME HEALTH. Addendum: 10/25/22 at 1331 by DICK LYNN [facility] PHONE #
[2022-10-25] MEDS ORDERED: LANTUS SUBQ (15:28)
[2022-10-25] MEDS ORDERED: VANC1PIG IV (15:30)
--- NOTE | 2022-10-25 15:45 | NUR ---
Patient c/o abdominal pain level of8/10 on the scale of 1-10 Morphine sulfate 4 give ivp, will reasses
--- NOTE | 2022-10-25 16:26 | NUR ---
PHYSICAL THERAPY CO-SIGN The Physical Therapy Progress Notes documented by Stock Replenisher have been reviewed. Reviewed/Co-Signed by: Jackie Apple PT Documentation Done by:EMMANUEL LUCAS UNISAW OPERATOR Addendum: 10/25/22 at 1626 by Jackie Apple PT Amended: Links added.
[2022-10-25 16:30] VITALS: BP 103/68
[2022-10-25 16:36] VITALS: BP 103/68
--- NOTE | 2022-10-25 17:48 | NUR ---
1615 patient stated his pain level is now zero, appears more comfortable
--- NOTE | 2022-10-25 17:49 | NUR ---
Patient given discharge instructions, expressed understanding. Patient will receive Home Health visits at home and has contacted the patient for the visit schedule. PICC Line capped and gave instructions to keep it capped and clean, flushed with saline, dressing dry and intact, is coming to take patient home, expressed understanding of all instructions given
== END 2022-10-25 18:15 | disposition home or self-care (01) | DRG 720 ==
LOC: MED 12:09 → OBSVTOIN 17:48 → MTU 17:48
PROVIDERS: ADMIT Student in an Organized Health Care Education/Training Program; ATTEND Student in an Organized Health Care Education/Training Program
DX: A41.9 Sepsis, unspecified organism (principal); N17.9 Acute kidney failure, unspecified; E44.0 Moderate protein-calorie malnutrition; E87.1 Hypo-osmolality and hyponatremia; E88.09 Other disorders of plasma-protein metabolism, not elsewhere classified; E11.22 Type 2 diabetes mellitus with diabetic chronic kidney disease; N39.0 Urinary tract infection, site not specified; Z68.1 Body mass index [BMI] 19.9 or less, adult; E11.65 Type 2 diabetes mellitus with hyperglycemia; M94.0 Chondrocostal junction syndrome [Tietze]; E78.5 Hyperlipidemia, unspecified; B95.62 Methicillin resistant Staphylococcus aureus infection as the cause of diseases classified elsewhere; I12.9 Hypertensive chronic kidney disease with stage 1 through stage 4 chronic kidney disease, or unspecified chronic kidney disease; N18.9 Chronic kidney disease, unspecified; Z20.822 Contact with and (suspected) exposure to COVID-19
CPT/HCPCS: 36415; 70450; 71045; 71275; 73502; 80048; 80053; 80202; 81001; 82947; 82948; 83036; 83605; 83880; 84484; 85025; 85610; 85730; 87040; 87081; 87086; 87186; 96361; 96365; 96375; 97112; 97116; 97163-GP; 97530; 99285; J0696; J1644; J1815; J1885; J2270; J2405; J3370; J7030; J7060; Q0092; Q9967